=== PATIENT | female | born 1990 | race Caucasian/White ===

== ENCOUNTER 2020-03-07 12:31 | Emergency (ER) | payer SELFPAY ==
[~2020-03-07] VITALS: Ht 167.6 cm; Wt 72.7 kg
[2020-03-07] MEDS ORDERED: IV NORMAL SALINE 1000ML BAG 1,000 ML IV SCH (12:46)
--- NOTE | 2020-03-07 12:53 | PHYS DOC ---
General Adult EDM: Chief Complaint: PELVIC PAIN HPI: HPI: Patient is a 29 year old female who presents with 3 days of lower abdominal pain and diarrhea with cold sweats. She states that when she has pain is a combination of a cramping and a stabbing type pain. She states she is been taking ibuprofen which helps. Currently states her pain is fine because she took ibuprofen. Denies any blood in her diarrhea, dysuria, nausea, vomiting, fever, back pain, headache, dizziness, chest pain, shortness of air, numbness or tingling, vision changes. Review of Systems: Review of Systems: GI: abdominal pain, denies nausea, vomiting, bloody stools. + diarrhea. [] Heart Score: Risk Factors: Risk Factors: DM, Current or recent (<one month) smoker, HTN, HLP, family history of CAD, obesity. Risk Scores: Score 0 - 3: 2.5% MACE over next 6 weeks - Discharge Home Score 4 - 6: 20.3% MACE over next 6 weeks - Admit for Clinical Observation Score 7 - 10: 72.7% MACE over next 6 weeks - Early Invasive Strategies Physical Exam: PE: Constitutional: Well developed, well nourished, no acute distress, non-toxic appearance. [] HENT: Normocephalic, atraumatic, bilateral external ears normal, oropharynx moist, no oral exudates, nose normal. [] Eyes: PERRLA, EOMI, conjunctiva normal, no discharge. [] Neck: Normal range of motion, no tenderness, supple, no stridor. [] Cardiovascular:Heart rate regular rhythm, no murmur [] Lungs & Thorax: Bilateral breath sounds clear to auscultation [] Abdomen: Bowel sounds normal, soft, no tenderness but feels pressure with palpation, no masses, no pulsatile masses. [] Skin: Warm, dry, no erythema, no rash. [] Back: No tenderness, no CVA tenderness. [] Extremities: No tenderness, no cyanosis, no clubbing, ROM intact, no edema. [] Neurologic: Alert and oriented X 3, normal motor function, normal sensory function, no focal deficits noted. [] Psychologic: Affect normal, judgement normal, mood normal. [] EKG: EKG: [] Radiology/Procedures: Radiology/Procedures: [] Impression: [facility] [address] [place] [address] IMAGING REPORT Signed PATIENT: HARJEET BELLA ACCOUNT: [id number] : 1990 LOCATION: ER AGE: 29 SEX: F EXAM STATUS: REG ER ORD. PHYSICIAN: BRIT HYDE APRN REASON: abdominal pain, diarrhea PROCEDURE: CT ABD PELV W/ IV CONTRST ONLY PQRS Compliance Statement: One or more of the following individualized dose reduction techniques were utilized for this examination: 1. Automated exposure control 2. Adjustment of the mA and/or kV according to patient size 3. Use of iterative reconstruction technique CT abdomen/pelvis with contrast 03/07/2020 12:46 PM INDICATION: Diarrhea, abdominal pain COMPARISON: None available TECHNIQUE: Multiple axial CT images of the abdomen and pelvis were obtained after the intravenous administration of Omnipaque 300. Coronal and sagittal reformats are provided. FINDINGS: Lung bases are clear. Heart size within normal limits. Liver, spleen, bilateral adrenal glands, pancreas, gallbladder and kidneys are normal in appearance. No suspicious renal mass or hydronephrosis. Abdominal aorta is normal in course and caliber. No pathologically enlarged lymph nodes are identified in abdomen and pelvis. There is no free fluid or free intraperitoneal air. Pancolonic mural edema and mild adjacent plantar changes just above a pancolitis. Appendix is normal in appearance. No bowel obstruction. Uterus is normal in appearance. Right adnexal cyst measures 3.2 x 2.6 cm. No suspicious bladder abnormality. No significant osseous abnormality is identified. IMPRESSION: Findings are most compatible with a andrews colitis of infectious/inflammatory etiology. Correlate with any underlying history of inflammatory bowel disease. Electronically signed by: Ari Maynard MD (03/07/2020 2:47 PM) [facility] DICTATED and SIGNED BY: ARI MAYNARD MD DATE: 03/07/20 1446 Course & Med Decision Making: Course & Med Decision Making Pertinent Labs and Imaging studies reviewed. (See chart for details) Alert and oriented. Speaks in full clear sentences. Skin pink warm and dry. Ambulatory with a steady gait. Vital signs within normal limits. Abdomen is soft and nontender. Patient states when I press on her lower abdomen she feels pressure. Denies any past medical history. She is a smoker. Denies any surgery. Only takes control daily. Denies concern for STD or vaginal discharge. Patient is hemodynamically stable. Afebrile. Patient is given Cipro and Flagyl in the ED. She is also given Rocephin. She will be sent home with Cipro and Flagyl and Keflex and [place]. She can follow-up with GI as soon as possible. [] Laney Disclaimer: Laney Disclaimer: This electronic medical record was generated, in whole or in part, using a voice recognition dictation system. Departure Departure Impression: Primary Impression: Colitis Additional Impression: UTI (urinary tract infection) Qualified Codes: N39.0 - Urinary tract infection, site not specified Disposition: HOME, SELF-CARE Condition: STABLE Referrals: NO PCP (PCP) ZOLTAN RALPH MD Patient Instructions: Colitis, Urinary Tract Infection Additional Instructions: Follow-up with the GI doctor soon as possible. Drink plenty of fluids. Take medication as prescribed and with food. Scripts Hydrocodone/Apap 5-325 (NORCO 5-325 TABLET) 1 Each Tablet 1 TAB PO PRN Q6HRS PRN for PAIN, #12 TAB 0 Refills Prov: BRIT HYDE APRN 03/07/20 Metronidazole (FLAGYL) 500 Mg Tablet 1 TAB PO BID, #14 TAB Prov: BRIT HYDE APRN 03/07/20 Ciprofloxacin Hcl (CIPRO) 500 Mg Tablet 1 TAB PO BID for 10 Days, #20 TAB 0 Refills Prov: BRIT HYDE APRN 03/07/20 Justicifation of Admission Dx: Justifications for Admission: Justification of Admission Dx: N/A BRIT HYDE APRN Mar 07, 2020 12:52
[2020-03-07 13:23] LABS: BILIRUBIN,URINE NEGATIVE (NEG); CLARITY,URINE CLOUDY; COLOR,URINE AMBER; NITRITE,URINE NEGATIVE (NEG); PROTEIN,URINE 30 mg/dL (NEG-TRACE); UROBILINOGEN,URINE 0.2 mg/dL (0.2 mg/dL)
[2020-03-07 13:36] LABS: BACTERIA,URINE FEW /HPF (0-FEW); RBC,URINE 0 /HPF (0-2); SQUAMOUS EPITHELIAL CELL,UR MOD /LPF
[2020-03-07 13:41] LABS: BASO % 0 % (0-3); EOS % 0 % (0-3); HEMATOCRIT 41.1 % (36.0-47.0); LYMPH # 1.3 x10^3/uL (1.0-4.8); LYMPH % 15 % (24-48); MEAN CORPUSCULAR HEMOGLOBIN 32 pg (25-35); MEAN CORPUSCULAR HGB CONC 34 g/dL (31-37); MEAN CORPUSCULAR VOLUME 94 fL (79-100); MONO # 0.4 x10^3/uL (0.0-1.1); MONO % 5 % (0-9); NEUT % 79 % (31-73); PLATELET COUNT 283 x10^3/uL (140-400); RED BLOOD COUNT 4.39 x10^6/uL (3.50-5.40); RED CELL DISTRIBUTION WIDTH 13.6 % (11.5-14.5); WHITE BLOOD COUNT 8.8 x10^3/uL (4.0-11.0)
[2020-03-07 13:49] LABS: CALCIUM 8.8 mg/dL (8.5-10.1); CREATININE 0.9 mg/dL (0.6-1.0); POTASSIUM 3.8 mmol/L (3.5-5.1)
[2020-03-07 13:55] LABS: ALBUMIN 3.7 g/dL (3.4-5.0); ALBUMIN/GLOBULIN RATIO 0.9 (1.0-1.7); TOTAL BILIRUBIN 0.6 mg/dL (0.2-1.0); TOTAL PROTEIN 7.9 g/dL (6.4-8.2)
[2020-03-07 13:56] LABS: PROTHROMBIN TIME PATIENT 13.4 SEC (11.7-14.0)
[2020-03-07] MEDS ORDERED: IOHEXOL 300 MG/ML 100ML VIAL. IV ONE (14:15)
[2020-03-07] MEDS ORDERED: CONTRAST GIVEN. MC PRN (14:15)
--- NOTE | 2020-03-07 14:50 | RAD ---
PQRS Compliance Statement: One or more of the following individualized dose reduction techniques were utilized for this examination: 1. Automated exposure control 2. Adjustment of the mA and/or kV according to patient size 3. Use of iterative reconstruction technique CT abdomen/pelvis with contrast 03/07/2020 12:46 PM INDICATION: Diarrhea, abdominal pain COMPARISON: None available TECHNIQUE: Multiple axial CT images of the abdomen and pelvis were obtained after the intravenous administration of Omnipaque 300. Coronal and sagittal reformats are provided. FINDINGS: Lung bases are clear. Heart size within normal limits. Liver, spleen, bilateral adrenal glands, pancreas, gallbladder and kidneys are normal in appearance. No suspicious renal mass or hydronephrosis. Abdominal aorta is normal in course and caliber. No pathologically enlarged lymph nodes are identified in abdomen and pelvis. There is no free fluid or free intraperitoneal air. Pancolonic mural edema and mild adjacent plantar changes just above a pancolitis. Appendix is normal in appearance. No bowel obstruction. Uterus is normal in appearance. Right adnexal cyst measures 3.2 x 2.6 cm. No suspicious bladder abnormality. No significant osseous abnormality is identified. IMPRESSION: Findings are most compatible with a andrews colitis of infectious/inflammatory etiology. Correlate with any underlying history of inflammatory bowel disease. Electronically signed by: Sirisha Balderrama MD (03/07/2020 2:47 PM) [facility]
[2020-03-07] MEDS ORDERED: CEPH-264 PO (15:00)
[2020-03-07] MEDS ORDERED: DICYCLOMINE 20 MG/2 ML VIAL. IM ONE (15:00)
[2020-03-07] MEDS ORDERED: cefTRIAXone IV Push 1 GM VIAL. IVP ONE (15:00)
[2020-03-07] MEDS ORDERED: METR500T PO (15:00)
[2020-03-07] MEDS ORDERED: HYDR-3164 PO (15:00)
[2020-03-07] MEDS ORDERED: CIPROFLOXACIN 400MG PREMIX 200 ML IV ONE (15:00)
[2020-03-07] MEDS ORDERED: CIPR500T94 PO (15:00)
[2020-03-07 17:23] VITALS: BP 148/87
== END 2020-03-07 17:28 | disposition home or self-care (01) ==
LOC: ER 12:31
DX: K52.9 Noninfective gastroenteritis and colitis, unspecified (principal); N39.0 Urinary tract infection, site not specified; R19.7 Diarrhea, unspecified
CPT/HCPCS: 36415; 74177; 80053; 81001; 81025; 83690; 85025; 85610; 87086; 96361; 96365; 96367; 96372; 99285; J0500; J0744; J3490; J7030; Q9967